=== PATIENT | male | born 1980 | race Caucasian/White ===

== ENCOUNTER 2018-05-28 02:44 | Emergency (ER) | payer SELFPAY ==
[~2018-05-28] VITALS: Wt 77.9 kg
[2018-05-28] MEDS ORDERED: ONDANSETRON (ODT) 4 MG TAB ODT STA (02:59)
[2018-05-28] MEDS ORDERED: LIDOCAINE/MYLANTA 40 ML BTL PO STA (02:59)
--- NOTE | 2018-05-28 03:11 | ERD ---
ER Documentation Chief Complaint Chief Complaint AP, VOMITING X'S 1 DAY HPI 37-year-old male presents here to emergency department for complaints of epigastric pain that started today, episodes of vomiting, complains of epigastric pain burning pain 4/10 scale, not better or worse with anything. Patient denies any fever or chills. Patient denies any diarrhea or constipation. ROS All systems reviewed and are negative except as per history of present illness. Medications Home Meds Reported Medications [none] Unknown Strength No Conflict Check 05/28/18 Allergies Allergies: Coded Allergies: No Known Allergy (Unverified , 05/28/18) PMhx/Soc Medical and Surgical Hx: pt denies Medical Hx, pt denies Surgical Hx History of Surgery: No Anesthesia Reaction: No Hx Neurological Disorder: No Hx Respiratory Disorders: No Hx Cardiac Disorders: No Hx Psychiatric Problems: No Hx Miscellaneous Medical Probl: No Hx Alcohol Use: No Hx Substance Use: No Hx Tobacco Use: Yes (1 stick/week) Smoking Status: Light tobacco smoker FmHx Family History: No diabetes, No coronary disease, No other Physical Exam Vitals Vital Signs Date Temp Pulse Resp B/P (MAP) Pulse Ox O2 O2 Flow FiO2 Time Delivery Rate 05/28/18 99.2 53 18 138/84 97 02:48 (102) Physical Exam GENERAL: The patient is well developed and appropriate for usual state of health, in no apparent distress. CHEST: Clear to auscultation bilaterally. There are no rales, wheezes or rhonchi. HEART: Regular rate and rhythm. No murmurs, clicks, rubs or gallops. No S3 or S4. ABDOMEN: Soft, nontender and nondistended. Good bowel sounds. No rebound or guarding. No gross peritonitis. No gross organomegaly or masses. No Oseguera sign or McBurney point tenderness. BACK: No midline or flank tenderness. EXTREMITIES: Equal pulses bilaterally. There is no peripheral clubbing, cyanosis or edema. No focal swelling or erythema. Full range of motion. Grossly neurovascularly intact. NEURO: Alert and oriented. Cranial nerves 2-12 intact. Motor strength in all 4 extremities with 5/5 strength. Sensation grossly intact. Normal speech and gait. SKIN: There is no apparent rash or petechia. The skin is warm and dry. HEMATOLOGIC AND LYMPHATIC: There is no evidence of excessive bruising or lymphedema. No gross cervical, axillary, or inguinal lymphadenopathy. Result Diagram: 05/28/18 0306 05/28/18 0306 Results 24 hrs Laboratory Tests Test 05/28/18 03:06 05/28/18 03:07 White Blood Count 11.3 10^3/ul Red Blood Count 5.02 10^6/ul Hemoglobin 15.5 g/dl Hematocrit 44.0 % Mean Corpuscular Volume 87.6 fl Mean Corpuscular Hemoglobin 30.9 pg Mean Corpuscular Hemoglobin Concent 35.2 g/dl Red Cell Distribution Width 11.9 % Platelet Count 322 10^3/UL Mean Platelet Volume 9.6 fl Immature Granulocytes % 0.400 % Neutrophils % 83.5 % Lymphocytes % 10.7 % Monocytes % 5.2 % Eosinophils % 0.0 % Basophils % 0.2 % Nucleated Red Blood Cells % 0.0 /100WBC Immature Granulocytes # 0.050 10^3/ul Neutrophils # 9.4 10^3/ul Lymphocytes # 1.2 10^3/ul Monocytes # 0.6 10^3/ul Eosinophils # 0.0 10^3/ul Basophils # 0.0 10^3/ul Nucleated Red Blood Cells # 0.0 10^3/ul Urine Color YELLOW Urine Clarity CLEAR Urine pH 7.0 Urine Specific Bolton 1.014 Urine Ketones TRACE mg/dL Urine Nitrite NEGATIVE mg/dL Urine Bilirubin NEGATIVE mg/dL Urine Urobilinogen NEGATIVE mg/dL Urine Leukocyte Esterase NEGATIVE Aspen/ul Urine Hemoglobin NEGATIVE mg/dL Urine Glucose NEGATIVE mg/dL Urine Total Protein NEGATIVE mg/dl Sodium Level 142 mmol/L Potassium Level 4.3 mmol/L Chloride Level 101 mmol/L Carbon Dioxide Level 29 mmol/L Anion Gap 12 Blood Urea Nitrogen 15 mg/dl Creatinine 0.97 mg/dl Est Glomerular Filtrat Rate mL/min > 60 mL/min Glucose Level 153 mg/dl Calcium Level 9.5 mg/dl Total Bilirubin 0.5 mg/dl Direct Bilirubin 0.00 mg/dl Indirect Bilirubin 0.5 mg/dl Aspartate Amino Transf (AST/SGOT) 32 IU/L Alanine Aminotransferase (ALT/SGPT) 16 IU/L Alkaline Phosphatase 97 IU/L Total Protein 8.3 g/dl Albumin 4.8 g/dl Globulin 3.50 g/dl Albumin/Globulin Ratio 1.37 Lipase 35 U/L Bedside Urine pH (LAB) 7.0 Bedside Urine Protein (LAB) 1+ Bedside Urine Glucose (UA) Negative Bedside Urine Ketones (LAB) 1+ Bedside Urine Blood Trace-intact Bedside Urine Nitrite (LAB) Negative Bedside Urine Leukocyte Esterase (L Negative Current Medications Medications Dose Sig/Jalyn Start Time Status Last (Trade) Ordered Route PRN Stop Time Admin Dose Reason Admin 40 ml ONCE STAT 05/28/18 DC 05/28/18 Miscellaneous PO 02:59 05/28/18 03:09 Medication 03:00 (Gi Cocktail (2)) Ondansetron 4 mg ONCE STAT 05/28/18 DC 05/28/18 HCl (Zofran ODT 02:59 05/28/18 03:09 Odt) 03:00 GI cocktail was given here in the emergency department. Zofran was also given here in the emergency department. PROCEDURE: US Abdomen. CLINICAL INDICATION: Abdominal pain, right upper quadrant TECHNIQUE: Diaz scale and color Doppler imaging of the right upper quadrant COMPARISON: None FINDINGS: The aorta and visualized inferior vena cava are unremarkable in appearance. The liver is homogeneous in echotexture and no focal liver lesions are seen. The gallbladder is normal in appearance without evidence of stones, sludge, or wall thickening. No intra or extrahepatic biliary dilatation is seen. The common bi le duct measures 4.2 mm in maximal dimension. The right kidney measures 11 cm. No hydronephrosis or renal calculi are seen. The pancreas is partially obscured by bowel gas. No ascites is seen. IMPRESSION: Study slightly limited by bowel gas. No definite acute abnormality. RPTAT: [facility]BE Suni Mario Physician Date Time Electronically viewed and signed by Suni Mario Physician on 05/28/2018 03:50 LE/ CC: EMMIE ROA NP [id number] Procedures/MDM Medical Decision Making: Symptoms most likely consistent with gastritis. There is low suspicion for abdominal emergencies at this time. Patients abdominal exam is normal at this time. Patients radiology exam does not show any abdominal emergencies at this time. There is low suspicion for appendicitis, cholecystitis, abdominal aortic aneurysms or peritonitis at this time. There is low suspicion for sepsis. Patient appears well and is hemodynamically stable. Disposition: Home. Condition: Stable Prescription Mylanta, ranitidine Instructions: Patient is advised to take medications as prescribed. Patient is advised to rest, increase fluid intake and do brat diet for next 1-2 days and progress as tolerated. Patient is advised that if symptoms are worse, severe abdominal pain, uncontrolled vomiting, high fever, severe flank pain, worst signs and symptoms, to return to the emergency department immediately. Otherwise, patient can follow up with primary care doctor in 5-7 days. Disclaimer: Inadvertent spelling and grammatical errors are likely due to [employer] R/dictation software use and do not reflect on the overall quality of patient care. Also, please note that the electronic time recorded on this note does not necessarily reflect the actual time of the patient encounter. Departure Diagnosis: Primary Impression: Abdominal pain Abdominal location: epigastric Qualified Codes: R10.13 - Epigastric pain Condition: Stable Patient Instructions: Epigastric Pain (Uncertain Cause) Additional Instructions: Patient is advised to take medications as prescribed. Patient is advised to re st, increase fluid intake and do brat diet for next 1-2 days and progress as tolerated. Patient is advised that if symptoms are worse, severe abdominal pain, uncontrolled vomiting, high fever, severe flank pain, worst signs and symptoms, to return to the emergency department immediately. Otherwise, patient can follow up with primary care doctor in 5-7 days. EMMIE ROA NP May 28, 2018 03:11
[2018-05-28] MEDS ORDERED: RANI150T35 PO (04:04)
[2018-05-28] MEDS ORDERED: MAG-19 PO (04:04)
== END 2018-05-28 04:20 | disposition home or self-care (01) ==
LOC: FTE 02:44
DX: R10.13 Epigastric pain (principal); F17.210 Nicotine dependence, cigarettes, uncomplicated; R11.10 Vomiting, unspecified
CPT/HCPCS: 36415; 76705; 80053; 81003; 83690; 85025